=== PATIENT | male | born 1955 | race Caucasian/White ===

== ENCOUNTER 2018-08-05 06:49 | Day surgery (SDC) | payer OTHER ==
[~2018-08-05] VITALS: Ht 172.7 cm; Wt 83.9 kg
[2018-08-05 07:30] VITALS: Ht 172.7 cm; Wt 83.9 kg
[2018-08-05] MEDS ORDERED: OMEP40CA6 PO (07:36)
[2018-08-05] MEDS ORDERED: ATOR20TA38 PO (07:36)
[2018-08-05 07:53] VITALS: BP 134/75; PULSE 68; RESP 13
[2018-08-05] MEDS ORDERED: LIDOCAINE 4% SOLUTION 50 ML BTL ONE (07:59)
[2018-08-05] MEDS ORDERED: FENTAnyl 50 MCG/ML VIAL ONE (08:28)
[2018-08-05] MEDS ORDERED: MIDAZOLAM 1 MG/ML 2 ML INJ ONE ×2 (08:28)
[2018-08-05 08:45] VITALS: BP 116/74; PULSE 66; RESP 20
== END 2018-08-05 14:54 | disposition home or self-care (01) ==
LOC: GIL 06:49
PROVIDERS: ATTEND Internal Medicine Gastroenterology
DX: K29.50 Unspecified chronic gastritis without bleeding (principal); B96.81 Helicobacter pylori [H. pylori] as the cause of diseases classified elsewhere; E78.5 Hyperlipidemia, unspecified
CPT/HCPCS: 43239; 88305; 88312; 88313; J2250; J3010; Z7610